=== PATIENT | female | born 1990 | race Caucasian/White ===

== ENCOUNTER 2019-08-02 19:36 | Emergency (ER) | payer OTHER ==
[~2019-08-02] VITALS: Ht 152.4 cm; Wt 97.5 kg
[~2019-08-02 19:36] MED LIST: BACTROBAN15 GM TP; CIPROFLOXACIN500 M1 PO; CIPROFLOXACIN500 M3 PO; DUONEB 2.5-0.5 M3 ML INH; FERROUS SULFAT325 M1; FLEXERIL PO; HYDROCODON-ACE1 EACH; IBUPROFEN 800800 M1; KEFLEX500 MG PO; LIDOCAINE VISC100 M1 MM; MEDROLDOSEPACK PO; NEURONTIN300 MG PO; PERCOCET PO; PRENATAL; PROAIR HFA8.5 GM; STOOL SOFTENER50 MG; TRAMADOL 50 MG50 MG PO; VENTOLIN HFA 1818 GM INH; ZPAK PO; ZYRTEC10 M2
[2019-08-02] MEDS ORDERED: IBU600 MG PO (19:49)
[2019-08-02] MEDS ORDERED: NAPROSYN500 MG PO (21:38)
[2019-08-02] MEDS ORDERED: KEFLEX500 M1 PO (21:38)
[2019-08-02 21:47] VITALS: BP 144/67
== END 2019-08-02 21:47 | disposition home or self-care (01) ==
LOC: M.ERS 19:36
DX: S61.412A Laceration without foreign body of left hand, initial encounter (principal); F17.210 Nicotine dependence, cigarettes, uncomplicated; D64.9 Anemia, unspecified; J45.909 Unspecified asthma, uncomplicated; F90.9 Attention-deficit hyperactivity disorder, unspecified type; F32.9 Major depressive disorder, single episode, unspecified; Z98.51 Tubal ligation status; Z88.5 Allergy status to narcotic agent; Z88.0 Allergy status to penicillin; W26.0XXA Contact with knife, initial encounter; Y93.89 Activity, other specified; Y92.89 Other specified places as the place of occurrence of the external cause; Y99.8 Other external cause status